=== PATIENT | male | born 1995 | race Caucasian/White ===

== ENCOUNTER 2023-10-30 13:51 | Outpatient (CLI) | payer OTHER, SELFPAY ==
[2023-10-30 15:24] LABS: Liquefaction Semen Complete in 30 min. (<30 minutes); Semen Color Opaque (Grey-opaque); Semen Immotility 40 %; Semen Non-Progressive Motility 10 %; Semen Progressive Motility 50 % (>32); Semen Total Motility 60 (>40% (PM+NP)); Semen Viscosity Not Increased (Not Increa.); Volume Semen 2 mL (1.5-5.0)
[2023-10-30 15:25] LABS: Semen Morphology Result to Follow
[2023-11-05 23:08] LABS: Fructose, Semen 489 mg/dL (150-600)
== END 2023-10-30 13:52 | disposition home or self-care (01) ==
PROVIDERS: Visit Provider Obstetrics & Gynecology
DX: Z31.41 Encounter for fertility testing (principal)
CPT/HCPCS: 82757; 88160; 89320